=== PATIENT | male | born 1940 | race Caucasian/White ===

== ENCOUNTER 2020-05-30 15:11 | Outpatient (CLI) | payer MEDICARE ==
--- NOTE | 2020-05-30 16:00 | XRAY Report ---
PROCEDURE: Knee 3 View LT INDICATIONS: PAIN IN LEFT KNEE TECHNIQUE: 3 views of the left knee(s) were acquired. COMPARISON: None. FINDINGS: Bones: No fractures or dislocations. No suspicious bony lesions. Mild narrowing of the medial join t space Soft tissues: No joint effusion. Scattered surgical clips and vascular calcifications.. IMPRESSION: Mild degenerative joint disease. If the patient's pain or other symptoms persist, consider further ev aluation with MRI. Reviewed by: Ponce Garza MD on 05/30/2020 3:59 PM PDT Approved by: Ponce Garza MD on 05/30/2020 3:59 PM PDT Station ID: [id number]
== END 2020-05-30 15:12 | disposition home or self-care (01) ==
LOC: DI.S 15:11
PROVIDERS: ATTEND Physician Assistant
DX: M17.12 Unilateral primary osteoarthritis, left knee (principal)